=== PATIENT | male | born 1980 | race Caucasian/White ===

== ENCOUNTER 2020-08-21 20:04 | Emergency (ER) | payer OTHER ==
[~2020-08-21] VITALS: Ht 172.7 cm; Wt 74.8 kg
[~2020-08-21 20:04] MED LIST: DELTASONE20 MG PO; DOXYCYCLINE HY100 MG PO; IBUPROFEN600 MG PO
[2020-08-21] MEDS ORDERED: PENICILLIN V P500 MG PO (20:25)
== END 2020-08-21 20:42 | disposition home or self-care (01) ==
LOC: ED 20:04
DX: K04.7 Periapical abscess without sinus (principal); F17.200 Nicotine dependence, unspecified, uncomplicated; Z79.52 Long term (current) use of systemic steroids
CPT/HCPCS: 99282

== ENCOUNTER 2021-03-04 12:14 | Emergency (ER) | payer OTHER ==
[~2021-03-04] VITALS: Ht 172.7 cm; Wt 79.4 kg
[~2021-03-04 12:14] MED LIST changes: +PENICILLIN V P500 MG PO
== END 2021-03-04 14:34 | disposition home or self-care (01) ==
LOC: ED 12:14
DX: M70.22 Olecranon bursitis, left elbow (principal); F17.200 Nicotine dependence, unspecified, uncomplicated
CPT/HCPCS: 73080; 80048; 85025; 85651; 86140; 99283-25

== ENCOUNTER 2022-01-09 04:42 | Emergency (ER) | payer OTHER ==
[~2022-01-09] VITALS: Ht 172.7 cm; Wt 78.9 kg
[2022-01-09] MEDS ORDERED: HYDROCODON-ACE1 EA10 PO (06:05)
[2022-01-09] MEDS ORDERED: CEPHALEXIN500 MG PO (06:05)
== END 2022-01-09 06:25 | disposition home or self-care (01) ==
LOC: ED 04:42
DX: S51.011A Laceration without foreign body of right elbow, initial encounter (principal); F17.200 Nicotine dependence, unspecified, uncomplicated; V47.6XXA Car passenger injured in collision with fixed or stationary object in traffic accident, initial encounter
CPT/HCPCS: 12002; 73070; 73080; 90471; 90715; 99284-25

== ENCOUNTER 2022-01-14 07:14 | Inpatient (IN) | payer OTHER ==
[~2022-01-14] VITALS: Ht 172.7 cm; Wt 77.2 kg
[~2022-01-14 07:14] MED LIST changes: +CEPHALEXIN500 MG PO; +HYDROCODON-ACE1 EA10 PO
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
--- NOTE | 2022-01-14 11:00 | NUR ---
patient arrived to room 112 via gourney from ED accompanied by his GF. alert and oriented X3 verbalizing adquate pain relief. With the help of charge machine operatorFREDA Peralta, patient was placed in a pillow sling and educated that he is to keep his arm in the sling. He was educated on the plan of care, bed, room, and call system, and ordered diet. CMS to RUE intact. Laceration with sutures on RUE well approximated. Bruising noted around the laceration and elbow. edema present from elbow to finger tips. radial pulses are present. patient denies tingling and numbness.
--- NOTE | 2022-01-14 12:24 | NUR ---
Rounded on patient. Sitting in bed with Rt arm in pillow sling. girlfriend in room with patient. He denied needs at this time.
--- NOTE | 2022-01-14 14:22 | NUR ---
PT AWAKE IN BED WITH FAMILY IN ROOM. CALL LIGHT IN REACH. NO FURTHER NEEDS AT THIS TIME.
--- NOTE | 2022-01-14 15:55 | NUR ---
Patient requested to take a shower. approved shower - patient was set up and IV covered. Denies pain at this time.
--- NOTE | 2022-01-14 17:32 | NUR ---
Medications reconciled. Patient was prescribed cephalexin x 7 days 01/09/22 through ED
--- NOTE | 2022-01-14 17:43 | NUR ---
patient has been alert oriented and cooperative this shift. showered today with the assistance of his GF. He denies pain when asked if he is having pain. He is a current every day smoker and he was educated on prn medications available. He needs reminded to keep his arm in the pillow sling. over the shift, the edema in his fingers has reduced with elevation but increased around the elbow. wound is weeping serous drainage at suture site. He is tolerating meals without nausea and voiding in the bathroom independently. Education provdied in IV antibiotics, Patient verbalized understanding of education provided.
--- NOTE | 2022-01-14 19:30 | NUR ---
SHIFT REPORT RECEIVED FROM SHYAM BARBA. PT RESTING IN BED, WATCHING TV. ARM ELEVATED. NO NEEDS AT THIS TIME. CALL LIGHT IN REACH.
--- NOTE | 2022-01-14 20:03 | NUR ---
V/S AND I&O'S TAKEN AND CHARTED. PICKED UP USED TOWELS AND GOWN AND TIDIED ROOM. PATIENT TOOK SHOWER.
--- NOTE | 2022-01-14 20:20 | NUR ---
ASSESSMENT, VS AND I&O COMPLETED. PT RIGHT ARM UP IN SLING. PT DENEIS PAIN. 2+ EDEMA AT ELBOW IN RIGHT ARM. WOUND CDI. GCS 15, A&O X4. LUNGS CLEAR, HEART TONES REGULAR. ABD SOFT, NONTENDER, BOWEL TONES ACTIVE. CMS INTACT. SCHEDULED MED PROVIDED. IV, CDI, WNL, FLUSHED WELL. NO OTHER NEEDS AT THIS TIME. CALL LIGHT IN REACH.
--- NOTE | 2022-01-14 20:50 | NUR ---
PT CALLED, IV PUMP ALARMING, ABX COMPLETE. IV SALINE FLUSH HAD COMPLETED, SL. FEMALE IN BED WITH PT. NO OTHER NEEDS AT THIS TIME.
--- NOTE | 2022-01-14 23:52 | NUR ---
PT RESTING IN BED, WATCHING TV. FAMILY IN ROOM. NO NEEDS AT THIS TIME. CALL LIGHT IN REACH.
--- NOTE | 2022-01-15 02:15 | NUR ---
SCHEDULED MED PROVIDED. ASSESSMENT PROVIDED. RIGHT ARM ELEVATED. EDEMA UNCHANGED AT ELBOW. WOUND WNL. PT DENEIS PAIN. NO OTHER NEEDS. CALL LIGHT IN REACH.
--- NOTE | 2022-01-15 04:10 | NUR ---
PT RESTING IN BED, EYES CLOSED. RR EVEN, UNLABORED. GIRLFRIEND IN ROOM. CALL LIGHT IN REACH.
--- NOTE | 2022-01-15 06:00 | NUR ---
VS AND I&O COMPLETED BY MAULIK GALLO. ALLEVYN PLACED OVER WOUND. NO OTHER NEEDS AT THIS TIME. CALL LIGHT IN REACH.
--- NOTE | 2022-01-15 08:30 | NUR ---
IN TO ASSESS PT WHO IS LAYING BED, REPORTS HE HAD SOME GOOD SLEEP IN THE NIGHT, ARM RESTING IN PILLOW CASE SLING. SOME SEROSANGUIOUS DRAINAGE NOTED IN SLING, ALLEVYN DRESSING IN PLACE. AROUND THE ELBOW IS SWOLLEN AND WARM TO THE TOUCH. RADIAL PULSE STRONG, CAP REFILL BRISK. MORNING ABX STARTED. PT HAS NO OTHER REQUESTS AT THIS TIME.
--- NOTE | 2022-01-15 10:33 | NUR ---
PT SHOWERED WITH ASSISTANCE FROM GIRLFRIEND. IV SITE COVERED WITH PLASTIC. ALLYVEN DRESSING REPLACED SEVERAL SUTURES NOTED. R ELBOW SWELLING NOTED SLIGHTLY SMALLER, ALSO WARMTH AROUND THIS AREA HAS DECREASED. PT REQUESTING TO GO OUTSIDE TO SMOKE, POLICY REVIEWED. OFFERED NICOTINE PATCH, OR LOZENGE, PT DECLINED.
[2022-01-15] MEDS ORDERED: CLINDAMYCIN HC300 MG PO (12:54)
--- NOTE | 2022-01-15 12:54 | NUR ---
CALLED TO REPORT THAT PT IS GOING TO LEAVE AGAINST MEDICAL ADVISE. SAID "OK", ASKED IF HE STILL WANTS THE FOLLOW UP APPOINTMENT TO BE SEEN IN HIS OFFICE IN ONE WEEK, SAID "YES", STAFF WILL MAKE FOLLOW UP APPOINTMENT.
--- NOTE | 2022-01-15 12:57 | NUR ---
DUE TO FAMILY/SOCIAL ISSUES, PT IS WANTING TO LEAVE AMA. PT AND PT'S GIRLFRIEND SPOKE WITH JOSETTE LEE FROM CASE [employer]NAGEMENT, FREDA SANDERSON AND THIS RN, BUT HAS STILL DECIDED TO LEAVE AMA.
--- NOTE | 2022-01-15 13:09 | NUR ---
CALLED OFFICE TO MAKE FOLLOW UP APPOINTMENT SPOKE WITH STORM, APPOINTMENT FOR JANUARY 20 AT 3:15PM. APPOINTMENT CARD FILLED OUT AND GIVEN TO PT.
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
== END 2022-01-15 13:15 | disposition left against medical advice (07) | DRG 603 ==
LOC: ED 07:14 → MS 09:21
PROVIDERS: ADMIT Internal Medicine; ATTEND Internal Medicine
DX: L03.113 Cellulitis of right upper limb (principal); Z20.822 Contact with and (suspected) exposure to COVID-19; F17.210 Nicotine dependence, cigarettes, uncomplicated; Z79.2 Long term (current) use of antibiotics
CPT/HCPCS: 36415; 73080; 80048; 80053; 83605; 85025; 87070; 87205; 96365; 96366; 96367; 99284-25; C9803; J0696; J1650; J3370; U0003